=== PATIENT | male | born 1990 | race Caucasian/White ===

== ENCOUNTER 2017-08-05 02:39 | Emergency (ER) | payer MEDICAID ==
[~2017-08-05] VITALS: Ht 180.3 cm; Wt 100.0 kg
[2017-08-05] MEDS ORDERED: DIPHENHYDRAMINE 50MG CAPSULE PO ONE (03:30)
[2017-08-05] MEDS ORDERED: PREDNISONE 20MG TABLET PO ONE (03:30)
[2017-08-05 04:22] LABS: BASOPHILS % 0.8 % (0.0-2.0); EOSINOPHILS % 6.4 % (0.0-5.0); HEMATOCRIT. 41.7 % (42.0-52.0); HEMOGLOBIN. 14.3 g/dL (14.0-18.0); LYMPHOCYTES % 25.7 % (20.0-50.0); MEAN CORPUSCULAR HEMOGLOBIN 29.9 pg (28.0-32.0); MEAN CORPUSCULAR VOLUME 87.5 fL (80.0-94.0); MEAN PLATELET VOLUME 7.8 fl (7.4-10.4); MONOCYTES % 11.3 % (2.0-8.0); NEUTROPHILS % 55.8 % (40.0-76.0); PLATELET 227 x1000/uL (130-400); RED BLOOD CELL COUNT 4.77 mill/uL (4.7-6.1)
[2017-08-05 04:24] LABS: CHLORIDE 106 mEq/L (98-107)
[2017-08-05 06:35] VITALS: BP 132/83
== END 2017-08-05 07:04 | disposition home or self-care (01) ==
LOC: ER 02:39
DX: R21 Rash and other nonspecific skin eruption (principal); J45.909 Unspecified asthma, uncomplicated
CPT/HCPCS: 36415; 80053; 85025; 99284; J7512; Z7610; Q0163

== ENCOUNTER 2020-04-17 06:15 | Emergency (ER) | payer MEDICAID ==
[~2020-04-17] VITALS: Ht 177.8 cm; Wt 105.0 kg
[2020-04-17] MEDS ORDERED: ONDANSETRON HCL 4MG/2ML INJ IV STA (06:42)
[2020-04-17] MEDS ORDERED: MORPHINE SULFATE 4 MG/ML CPJ (NOT FOR IM USE) IV STA (06:42)
[2020-04-17] MEDS ORDERED: SODIUM CHLORIDE 0.9% 1,000 ML IV ONE (06:45)
[2020-04-17 08:01] LABS: CHLORIDE 108 mEq/L (98-107)
[2020-04-17 08:03] LABS: PROTHROMBIN TIME 10.3 sec (9.6-11.0)
[2020-04-17 08:05] LABS: ETHANOL BLOOD < 10 mg/dL
[2020-04-17 08:06] LABS: HEMOGLOBIN. 14.7 g/dL (14.0-18.0); MEAN CORPUSCULAR HEMOGLOBIN 29.8 pg (28.0-32.0); MEAN CORPUSCULAR VOLUME 87.1 fL (80.0-94.0); PLATELET 234 x1000/uL (130-400); RED BLOOD CELL COUNT 4.93 mill/uL (4.7-6.1); RED CELL DISTRIBUTION WIDTH 13.3 % (11.6-14.6)
[2020-04-17 08:58] LABS: ATYPICAL LYMPHOCYTES 1
[2020-04-17 09:00] VITALS: BP 132/88
[2020-04-17 09:00] LABS: PLATELET ESTIMATE NORMAL
[2020-04-17] MEDS ORDERED: IBUP-2029 MT (09:22)
[2020-04-17] MEDS ORDERED: LOPE2CAP MT (09:22)
[2020-04-17] MEDS ORDERED: CIPR-263 MT (09:22)
== END 2020-04-17 10:03 | disposition home or self-care (01) ==
LOC: ER 06:15
DX: R10.9 Unspecified abdominal pain (principal); R19.7 Diarrhea, unspecified; F15.10 Other stimulant abuse, uncomplicated; J45.909 Unspecified asthma, uncomplicated; Z90.49 Acquired absence of other specified parts of digestive tract
CPT/HCPCS: 36415; 74176; 80053; 80320; 83690; 85025; 85610; 93005; 96360; 96361; 99285; J2270; J2405; J7030; G0480

== ENCOUNTER 2022-06-04 05:06 | Emergency (ER) | payer MEDICAID ==
[~2022-06-04] VITALS: Ht 177.8 cm; Wt 100.0 kg
[~2022-06-04 05:06] MED LIST: CIPR-263 MT; IBUP-2029 MT; LOPE2CAP MT
[2022-06-04] MEDS ORDERED: KETOROLAC 30MG/ML VIAL IV ONE (06:00)
[2022-06-04 06:39] LABS: BASOPHILS % 0.8 % (0.0-2.0); EOSINOPHILS % 3.3 % (0.0-5.0); HEMATOCRIT. 40.3 % (42.0-52.0); HEMOGLOBIN. 13.8 g/dL (14.0-18.0); LYMPHOCYTES % 25.5 % (20.0-50.0); MEAN CORPUSCULAR HEMOGLOBIN 29.7 pg (28.0-32.0); MEAN CORPUSCULAR VOLUME 86.6 fL (80.0-94.0); MEAN PLATELET VOLUME 7.2 fl (7.4-10.4); MONOCYTES % 12.6 % (2.0-8.0); NEUTROPHILS % 57.8 % (40.0-76.0); PLATELET 401 x1000/uL (130-400); RED BLOOD CELL COUNT 4.65 mill/uL (4.7-6.1); RED CELL DISTRIBUTION WIDTH 13.2 % (11.6-14.6)
[2022-06-04 06:47] LABS: CHLORIDE 106 mEq/L (98-107)
[2022-06-04 11:25] VITALS: BP 121/78
== END 2022-06-04 12:30 | disposition left against medical advice (07) ==
LOC: ER 05:27 → EDBEDREQTM 10:05 → EDBEDREQ 10:05 → ER 12:30 → CANBEDREQ 06-06 22:58
DX: L03.116 Cellulitis of left lower limb (principal); J45.909 Unspecified asthma, uncomplicated; F15.10 Other stimulant abuse, uncomplicated; Z90.49 Acquired absence of other specified parts of digestive tract
CPT/HCPCS: 36415; 80048; 82542; 85025; 93971; 96374; 99285; J1885; Z7610

== ENCOUNTER 2023-04-16 01:31 | Emergency (ER) | payer MEDICAID ==
[~2023-04-16] VITALS: Ht 170.2 cm; Wt 100.0 kg
[2023-04-16 03:15] VITALS: O2SAT 96
[2023-04-16] MEDS ORDERED: IBUP-2029 MT (04:45)
[2023-04-16 05:02] VITALS: BP 121/68; PULSE 87; RESP 16; TEMP 98.4
== END 2023-04-16 05:04 | disposition home or self-care (01) ==
LOC: ER 04:31
DX: S02.2XXA Fracture of nasal bones, initial encounter for closed fracture (principal); S06.0X0A Concussion without loss of consciousness, initial encounter; F15.10 Other stimulant abuse, uncomplicated; Y08.89XA Assault by other specified means, initial encounter; Y93.89 Activity, other specified; Y92.89 Other specified places as the place of occurrence of the external cause; Y99.8 Other external cause status
CPT/HCPCS: 70486; 99284

== ENCOUNTER 2024-02-18 02:05 | Emergency (ER) | payer MEDICAID ==
[~2024-02-18] VITALS: Ht 177.8 cm; Wt 113.0 kg
[2024-02-18 02:23] VITALS: O2SAT 99
[2024-02-18 02:33] VITALS: BP 149/96; TEMP 98
[2024-02-18] MEDS: IPRATROPIUM/ALBUTEROL 0.5-3(2.5)MG/3ML NEB HHN ONE (03:26)
[2024-02-18 03:27] VITALS: PULSE 82; RESP 18; O2SAT 97
[2024-02-18] MEDS: DEXAMETHASONE 10 MG/ML VIAL PO ONE (03:31)
[2024-02-18] MEDS ORDERED: GUAI-450 MT (04:24)
== END 2024-02-18 04:51 | disposition home or self-care (01) ==
LOC: ER 02:05
DX: B34.9 Viral infection, unspecified (principal); J45.909 Unspecified asthma, uncomplicated; F15.10 Other stimulant abuse, uncomplicated; I10 Essential (primary) hypertension; Z79.899 Other long term (current) drug therapy
CPT/HCPCS: 36415; 71045; 94640; 99284; J1100; Z7610 ×3